=== PATIENT | female | born 1990 | race Two or more races ===

== ENCOUNTER 2025-02-12 12:49 | Inpatient (IN) | payer BC, OTHER ==
[~2025-02-12] VITALS: Ht 170.2 cm; Wt 95.2 kg
--- NOTE | 2025-02-12 13:22 | ED.PDOC ---
AUTO BODY STRAIGHTENER HPI Comments 34 y.o female with PMHx of anemia, blood transfusions and asthma, presents to the ED for a chief complaint of vaginal bleeding associated with cramping, generalized weakness and a syncopal episode. Patient reports experiencing heavy bleeding with large blood clots for the past 4 weeks, is going through one pad every 1.5 hours and states today after showering, had a syncopal episode. Patient slid down against the wall and briefly lost consciousness for 10 seconds. She denied any head trauma or injuries. Patient mentions history of heavy menstrual cycles lasting weeks with the long est being 12 weeks in which she needed a blood transfusion for. Patient states this cycle period has been the heaviest out of all her others. Patient was diagnosed with fibroids 3 weeks ago via ultrasound and states she has been on multiple control medications with no relief. Patient reports HGB level was at 6.1 2 months ago. Chief Complaint: Vaginal Bleed Time Seen by MD: 13:02 Reviewed Notes: Nurses Notes, Medications, Allergies Allergies: Coded Allergies: Ceftriaxone (Verified Allergy, Unknown, 02/12/25) Iodine (Verified Allergy, Unknown, 02/12/25) Information Source: Patient Mode of Arrival: Ambulatory Timing: Weeks (4) Severity: Severe Vaginal Discharge: None Vaginal Lesions: None Bleeding Quality: Dark, Clotted Vaginal Mass: None Onset Of Mass/Bleeding: Spontaneous Sexual Activity: Neither Last Consensual [place]: Unknown Control: None Symptoms of Possible : None Associated Signs and Symptoms: Vaginal Bleeding Past Medical History PAST MEDICAL HISTORY: Anemia, Asthma Past Medical History (Other): Blood transfusions Surgical History (Other): d&c procedure Family History Family History: Reviewed,noncontributory to illness Social History Smoker: Non-Smoker Alcohol: Denies ETOH Use Drugs: Denies Drug Use Lives In: Home Constitutional: reports: weakness; denies: chills, diaphoresis, fatigue, fever, malaise, sweats, others EENTM: denies: blurred vision, double vision, ear bleeding, ear discharge, ear drainage, ear pain, ear ringing, eye pain, eye redness, hearing loss, mouth pain, mouth swelling, nasal discharge, nose bleeding, nose congestion, nose pain, photophobia, tearing, throat pain, throat swelling, voice changes, others Respiratory: denies: cough, hemoptysis, orthopnea, SOB at rest, shortness of breath, SOB with excertion, stridor, wheezing, others Cardiovascular: reports: syncope; denies: chest pain, dizzy spells, diaphoresis, Dyspnea on exertion, edema, irregular heart beat, left arm pain, lightheadedness, palpitations, PND, others Gastrointestinal: denies: abdomen distended, abdominal pain, blood streaked bowels, constipated, diarrhea, dysphagia, difficulty swallowing, hematemesis, melena, nausea, poor appetite, poor fluid intake, rectal bleeding, rectal pain, vomiting, others Genitourinary: reports: abnormal vagina bleeding, pain; denies: burning, dyspareunia, dysuria, flank pain, frequency, hematuria, incontinence, , vagina discharge, urgency, others Neurological: denies: dizziness, fainting, headache, left sided numbness, left sided weakness, numbness, paresthesia, pre-existing deficit, right sided nu mbness, right sided weakness, seizure, speech problems, tingling, tremors, weakness, others Musculoskeletal: denies: back pain, gout, joint pain, joint swelling, muscle pain, muscle stiffness, neck pain, others Integumetry: denies: bruises, change in color, change in hair/nails, dryness, laceration, lesions, lumps, rash, wounds, others Allergic/Immunocompromised: denies: Difficulty Healing, Frequent Infections, Hives, Itching, others Hematologic/Lymphatic: denies: anemia, blood clots, easy bleeding, easy bruising, swollen glands, others Endocrine: denies: excessive hunger, excessive sweating, excessive thirst, excessive urination, flushing, intolerance to cold, intolerance to heat, unexplained weight gain, unexplained weight loss, others Psychiatric: denies: anxiety, bipolar disorder, depression, hopeless, panic disorder, schizophrenia, sleepless, suicidal, others All Other Systems: Reviewed and Negative Physical Exam General Appearance: Mild Distress, Obese HEENT: Pale Conjuntivae (L), Pale Conjuntivae (R), Other (Pupils and face symmetric. Moist mucous membranes.) Neck: Full Range of Motion, Normal Inspection Respiratory: Lungs Clear, No Accessory Muscle Use, No Respiratory Distress, Normal Breath Sounds Cardiovascular: No Edema, No JVD, Regular Rate/Rhythm Breast Exam: Deferred Gastrointestinal: Non Tender, Soft Genitalia: Deferred Pelvic: Deferred Rectal: Deferred Extremities: Normal inspection, Normal range of motion, Non-tender, No pedal edema Neurologic: Alert (Oriented x4), Normal Affect, Normal Mood, Other (Ambulatory.) Cerebellar Function: NOT DONE Reflexes: NOT DONE Skin: Dry, Pallor, Warm Lymphatic: NOT DONE Was a procedure done? Was a procedure done?: No Differential Diagnosis (STRIP TANK TENDER) Vaginal Bleeding: Blood Loss Anemia, Ectopic , Menorrhagia, Menometrorrhagia, Menstrual Bleeding, Myomatous Uterus, UTI X-Ray, Labs, Meds, VS Vital Signs Date Time Temp Pulse Resp B/P (MAP) Pulse Ox O2 Delivery O2 Flow Rate FiO2 02/12/25 15:12 86 16 100 Room Air* 0 21 02/12/25 14:06 98.1 86 16 120/52 (74) 100 98.1 02/12/25 12:53 99.4 110 20 156/98 (117) 99 99.4 Lab Test 02/12/25 13:18 Range/Units White Blood Count 4.5 4.4-10.8 10^3/uL Red Blood Count 3.34 L 4.0-5.20 10^6/uL Hemoglobin 5.0 *L 12.2-16.2 g/dL Hematocrit 17.6 L 36.0-46.0 % Mean Corpuscular Volume 52.7 L 80.0-100.0 fL Mean Corpuscular Hemoglobin 15.0 L 28.0-32.0 pg Mean Corpuscular Hemoglobin Concent 28.5 L 32.0-36.0 g/dL Red Cell Distribution Width 21.5 H 11.8-14.3 % Platelet Count 291 140-450 10^3/uL Mean Platelet Volume 8.7 6.9-10.8 fL Neutrophils (%) (Auto) 60.7 37.0-80.0 % Lymphocytes (%) (Auto) 29.3 10.0-50.0 % Monocytes (%) (Auto) 6.1 0.0-12.0 % Eosinophils (%) (Auto) 2.6 0.0-7.0 % Basophils (%) (Auto) 1.3 0.0-2.0 % Neutrophils # (Auto) 2.7 1.6-8.6 10 ^3/uL Lymphocytes # (Auto) 1.3 0.4-5.4 10 ^3/uL Monocytes # (Auto) 0.3 0-1.3 10 ^3/uL Eosinophils # (Auto) 0.1 0-0.8 10 ^3/uL Basophils # (Auto) 0.1 0-0.2 10 ^3/uL Nucleated Red Blood Cells 0.1 % Platelet Estimate Adequate Hypochromasia (manual) Moderate Anisocytosis (manual) Moderate Microcytosis Marked Ovalocytes Few Prothrombin Time 10.5 9.3-11.8 sec Prothrombin Time INR 0.99 0.9-1.15 Activated Partial Thromboplast Time 21.6 L 24.5-34.5 SEC Sodium Level 139 136-145 mmol/L Potassium Level 3.6 3.5-5.1 mmol/L Chloride Level 109 H 98-107 mmol/L Carbon Dioxide Level 21 20-31 mmol/L Anion Gap 9 5-15 Blood Urea Nitrogen 9 9-23 mg/dL Creatinine 0.72 0.550-1.02 mg/dL Glomerular Filtration Rate Calc 111 >90 mL/min BUN/Creatinine Ratio 12.5 10.0-20.0 Serum Glucose 93 74-106 mg/dL Calcium Level 9.3 8.7-10.4 mg/dL Beta HCG, Quantitative 1.3 L 1.5-4.2 mIU/mL Procedure: US PELVIC Study Date and Requested Time: 02/12/2025 02:11 PM Study Description: US PELVIC History: vaginal bleeding Comparison: 12/20/2024 Technique: Multiple transabdominal and transvaginal high resolution baig-scale images obtained of the uterus and adnexa with color Doppler for evaluation of adnexal blood flow and vascularity as indicated. Findings: Uterus measures 13.2 x 7.9 x 6.9 cm, with heterogeneous echotexture. Endometrium within normal limits, measuring 2.2 cm in thickness with smooth contour. Cervix within normal limits. Right ovary is not visualized. The left ovary measures 4 x 2.8 x 3.8 cm with a 2.2 cm cyst. Normal left ovarian color doppler flow. No evidence of free fluid in the cul-de-sac. Impression: Limited evaluation due to body habitus and overlying bowel gas. Thickened endometrium at 2.2 cm. Correlate for endometrial hyperplasia. 2.2 cm left ovarian cyst. The previously noted uterine fibroid over the fundus is not well delineated on current study. X-Ray, Labs, Meds, VS Comment 34-year-old female with a history of heavy menses, anemia and asthma complaining of a syncopal episode and heavy vaginal bleeding Vitals remarkable for heart rate 110, BP 156/98 Exam remarkable for pallor and tachycardia Rhythm strip independently interpreted by me: Sinus tach, rate 110, no ectopy. Pelvic ultrasound: Impression: Limited evaluation due to body habitus and overlying bowel gas. Thickened endometrium at 2.2 cm. Correlate for endometrial hyperplasia. 2.2 cm left ovarian cyst. The previously noted uterine fibroid over the fundus is not well delineated on c urrent study. CBC remarkable for hemoglobin 5, hematocrit 17.6, metabolic panel unremarkable, coagulation panel remarkable for PTT 21.6, hCG negative Patient was typed and crossed for 2 units of packed red cells. Plan is to admit the patient for transfusion and safety fire boss evaluation. Time of 1ST Reevaluation: 13:21 Reevaluation 1ST: Unchanged Patient Education/Counseling: Diagnosis, Treatment, Prognosis Family Education/Counseling: No Family Present Departure 1 Departure Time of Disposition: 16:00 Impression: Primary Impression: Symptomatic anemia Additional Impressions: Uterine fibroid Vaginal bleeding Disposition: ADMITTED INPATIENT Admit to: Tele Condition: Guarded Critical Care Note Critical Care Time?: No Stability Stability form required: No I personally scribed for KAY PUENTES MD (SILVIA) on 02/12/25 at 13:22. Electronically submitted by Kennedi Olivo ([facility]). I personally scribed for KAY PUENTES MD (SILVIA) on 02/12/25 at 13:37. Electronically submitted by Kennedi Olivo ([facility]). I personally scribed for KAY PUENTES MD (SILVIA) on 02/12/25 at 15:02. Electronically submitted by Kennedi Olivo ([facility]). KAY PUENTES MD Feb 12, 2025 13:22
[2025-02-12 13:38] LABS: Basophils # (auto) 0.1 10 ^3/uL (0-0.2); Eosinophils # (auto) 0.1 10 ^3/uL (0-0.8); Lymphocytes # (auto) 1.3 10 ^3/uL (0.4-5.4); Neutrophils # (auto) 2.7 10 ^3/uL (1.6-8.6); Nucleated Red Blood Cells % 0.1 %; White Blood Cell 4.5 10^3/uL (4.4-10.8)
[2025-02-12 13:42] LABS: Basophils % (auto) 1.3 % (0.0-2.0); Eosinophils % (auto) 2.6 % (0.0-7.0); Hematocrit 17.6 % (36.0-46.0); Lymphocytes % (auto) 29.3 % (10.0-50.0); Mean Corpuscular Hgb Conc. 28.5 g/dL (32.0-36.0); Mean Corpuscular Volume 52.7 fL (80.0-100.0); Monocytes # (auto) 0.3 10 ^3/uL (0-1.3); Monocytes % (auto) 6.1 % (0.0-12.0); Neutrophils % (auto) 60.7 % (37.0-80.0); Platelet Count (auto) 291 10^3/uL (140-450); Red Blood Cells 3.34 10^6/uL (4.0-5.20)
[2025-02-12 13:43] LABS: Potassium 3.6 mmol/L (3.5-5.1); Sodium 139 mmol/L (136-145)
[2025-02-12 13:44] LABS: Anion Gap 9 (5-15); Carbon Dioxide 21 mmol/L (20-31)
[2025-02-12 13:45] LABS: Calcium 9.3 mg/dL (8.7-10.4); Red Cell Distribution Width 21.5 % (11.8-14.3)
[2025-02-12 13:48] LABS: Chloride 109 mmol/L (98-107)
[2025-02-12 13:49] LABS: Glucose 93 mg/dL (74-106)
[2025-02-12 13:50] LABS: BUN/Creatinine Ratio 12.5 (10.0-20.0); Blood Urea Nitrogen 9 mg/dL (9-23)
[2025-02-12 13:52] LABS: INR 0.99 (0.9-1.15); Partial Thromboplastin Time 21.6 SEC (24.5-34.5); Prothrombin Time 10.5 sec (9.3-11.8)
[2025-02-12 14:26] LABS: Anisocytosis Moderate; Hypochromia Moderate; Platelet Estimate Adequate
[2025-02-12 14:28] LABS: Ovalocytes FEW
--- NOTE | 2025-02-12 14:56 | DVH ---
Procedure: US PELVIC Study Date and Requested Time: 02/12/2025 02:11 PM Study Description: US PELVIC History: vaginal bleeding Comparison: 12/20/2024 Technique: Multiple transabdominal and transvaginal high resolution baig-scale images obtained of the uterus and adnexa with color Doppler for evaluation of adnexal blood flow and vascularity as indicat ed. Findings: Uterus measures 13.2 x 7.9 x 6.9 cm, with heterogeneous echotexture. Endometrium within normal limits , measuring 2.2 cm in thickness with smooth contour. Cervix within normal limits. Right ovary is not visualized. The left ovary measures 4 x 2.8 x 3.8 cm with a 2.2 cm cyst. Normal l eft ovarian color doppler flow. No evidence of free fluid in the cul-de-sac. Impression: Limited evaluation due to body habitus and overlying bowel gas. Thickened endometrium at 2.2 cm. Correlate for endometrial hyperplasia. 2.2 cm left ovarian cyst. The previously noted uterine fibroid over the fundus is not well delineated on current study.
[2025-02-12 15:12] VITALS: PULSE 86; RESP 16; O2SAT 100
[2025-02-12 17:45] LABS: Urine Bacteria None Seen /hpf (None Seen)
[2025-02-12] MEDS ORDERED: MORPHINE SULFATE INJ 2 MG/ml SYRG IV PRN ×2 (18:00)
[2025-02-12] MEDS ORDERED: NITROGLYCERIN 0.4 MG SL TAB SL PRN (18:00)
[2025-02-12] MEDS ORDERED: HYDROcodone-ACET 5/325MG TAB PO PRN (18:00)
[2025-02-12] MEDS ORDERED: ONDANSETRON HCL 4 MG/2 ML VIAL IV PRN (18:00)
[2025-02-12 18:25] LABS: Urine Blood 3+ /uL (Negative); Urine Clarity Turbid (Clear); Urine Color Yellow (Yellow); Urine Mucus FEW (None Seen); Urine Protein, UAD TRACE (Negative); Urine Specific Gravity 1.027 (1.001-1.035); Urine Squamous Epithelial Cell FEW /hpf (<5); Urine Urobilinogen Normal (Negative); Urine WBC 3 /HPF (0-5); Urine pH 5.5 (5.0-9.0)
[2025-02-12 21:36] VITALS: BP 109/56; PULSE 82; RESP 18; TEMP 98.9; O2SAT 99
[2025-02-13] VITALS (23 sets, daily range): BP systolic 95–116; BP diastolic 44–65; PULSE 63–89; RESP 16–20; TEMP 97.7–99.1; O2SAT 19–98
--- NOTE | 2025-02-13 00:42 | DVHHP2 ---
Admitting Diagnosis: Symptomatic Anemia, Menorrhagia History of Present Illness History Source: Patient Exam Limitations: No limitations HPI Mrs. Arlin Santos is a 34 y.o female with a history of anemia, blood transfusions and asthma, presents to the ED for a chief complaint of vaginal bleeding associated with cramping, generalized weakness and a syncopal episode. Patient reports experiencing heavy bleeding with large blood clots for the past 4 weeks, is going through one pad every 1.5 hours and states today after showering, had a syncopal episode. Patient slid down against the wall and briefly lost consciousness for 10 seconds. She denied any head trauma or i njuries. Patient mentions history of heavy menstrual cycles lasting weeks with the longest being 12 weeks in which she needed a blood transfusion for. Patient states this cycle period has been the heaviest out of all her others. Patient was diagnosed with fibroids 3 weeks ago via ultrasound and states she has been on multiple control medications with no relief, patient reports she is with BLOOD BANK TECHNICIAN Dr. Rosario Tolentino and has an outpatient appointment for biopsy. Patient reports HGB level was at 6.1 2 months ago. Patient admitted for further treatment. Home Meds Reported Medications Albuterol Sulfate (VENTOLIN MDI) 90 Mcg Ih, 90 MCG IN, INH 02/13/25 Multiple Vitamin (Multivitamins) Tab, 1 TAB PO DAILY, #90 TAB 3 Refills 02/13/25 Ferrous Sulfate (FERROUS SULFATE) 325 Mg Tb, 1 TAB PO DAILY, #30 TAB 3 Refills 02/13/25 Past Medical History Cardiac: No pertinent Hx Pulmonary: Asthma Central Nervous System: No pertinent Hx GI: No pertinent Hx Hemotology/Oncology: No pertinent Hx Hepatobiliary: No pertinent Hx Psychiatric: No pertinent Hx Musculoskeletal: No pertinent Hx Rheumotologic: No pertinent Hx Infectious Disease: No peritnent Hx ENT: No pertinent Hx Renal/: No pertinent Hx Endocrine: No pertinent Hx Dermatology: No pertinent Hx Others blood transfusion, uterine fibroids, anemia Review of Systems Constitutional: No symptom reported Ears, Nose, & Throat: No symptom reported Eyes: No symptom reported Pulmonary/Respiratory: No symptom reported Cardiovascular: No symptom reported Gastrointestinal: No symptom reported Genitourinary: No symptom reported Musculoskeletal: No symptom reported Skin: No symptom reported Psychiatric: No symptom reported Endocrine: No symptom reported Hemotologic/Lymphatic: No symptom reported All Other Systems vaginal bleeding, dizziness H&P Exam Vital Signs Vital Signs Date Time Temp Pulse Resp B/P (MAP) Pulse Ox O2 Delivery O2 Flow Rate FiO2 02/12/25 21:36 98.9 82 18 109/56 (73) 99 98.9 02/12/25 15:12 Room Air* 0 21 General Appeara: Well developed, Well nourished, Normal Appearance, Other (pallor) Head Exam: Normal inspection Neck Exam: Normal inspection, Non-tender, Normal alignment Eye Exam: bilateral eye Normal inspection, bilateral eye PERRL, bilateral eye EOMI Ear Exam: bilateral ear Auricle normal Nasal Exam: Normal inspection Mouth: Normal Inspection Pulmonary/Respiratory: Normal inspection, Normal breath sounds, Chest non- tender, Lungs clear Cardiovascular/Chest: Normal inspection, Regular rate, Normal Rhythm Peripheral Pulses: 2+ dorsalis pedis (R), 2+ dorsalis pedis (L), 2+ Radial (R), 2+ Radial (L) Abdominal Exam: Normal bowel sounds, Soft Rectal Exam: Deferred Pelvic Exam: Other (vaginal bleeding) COMPUTER SYSTEMS CONSULTANT Exam: Normal hearing, Normal speech, PERRL Neuro/Mental St: Alert, Oriented Appearance: Appropriate appearance, Appropriate insight Eye contact/ Speech: Cooperative, Good eye contact, Normal speech Thoughts/Psych: Normal thought pattern Skin Exam: Normal inspection, Warm/dry, Pallor Labs/Xrays Labs Test 02/12/25 13:18 02/12/25 12:59 Range/Units White Blood Count 4.5 4.4-10.8 10^3/uL Red Blood Count 3.34 L 4.0-5.20 10^6/uL Hemoglobin 5.0 *L 12.2-16.2 g/dL Hematocrit 17.6 L 36.0-46.0 % Mean Corpuscular Volume 52.7 L 80.0-100.0 fL Mean Corpuscular Hemoglobin 15.0 L 28.0-32.0 pg Mean Corpuscular Hemoglobin Concent 28.5 L 32.0-36.0 g/dL Red Cell Distribution Width 21.5 H 11.8-14.3 % Platelet Count 291 140-450 10^3/uL Mean Platelet Volume 8.7 6.9-10.8 fL Neutrophils (%) (Auto) 60.7 37.0-80.0 % Lymphocytes (%) (Auto) 29.3 10.0-50.0 % Monocytes (%) (Auto) 6.1 0.0-12.0 % Eosinophils (%) (Auto) 2.6 0.0-7.0 % Basophils (%) (Auto) 1.3 0.0-2.0 % Neutrophils # (Auto) 2.7 1.6-8.6 10 ^3/uL Lymphocytes # (Auto) 1.3 0.4-5.4 10 ^3/uL Monocytes # (Auto) 0.3 0-1.3 10 ^3/uL Eosinophils # (Auto) 0.1 0-0.8 10 ^3/uL Basophils # (Auto) 0.1 0-0.2 10 ^3/uL Nucleated Red Blood Cells 0.1 % Platelet Estimate Adequate Hypochromasia (manual) Moderate Anisocytosis (manual) Moderate Microcytosis Marked Ovalocytes Few Prothrombin Time 10.5 9.3-11.8 sec Prothrombin Time INR 0.99 0.9-1.15 Activated Partial Thromboplast Time 21.6 L 24.5-34.5 SEC Sodium Level 139 136-145 mmol/L Potassium Level 3.6 3.5-5.1 mmol/L Chloride Level 109 H 98-107 mmol/L Carbon Dioxide Level 21 20-31 mmol/L Anion Gap 9 5-15 Blood Urea Nitrogen 9 9-23 mg/dL Creatinine 0.72 0.550-1.02 mg/dL Glomerular Filtration Rate Calc 111 >90 mL/min BUN/Creatinine Ratio 12.5 10.0-20.0 Serum Glucose 93 74-106 mg/dL Calcium Level 9.3 8.7-10.4 mg/dL Beta HCG, Quantitative 1.3 L 1.5-4.2 mIU/mL Urine Color Yellow Yellow Urine Clarity Turbid H Clear Urine pH 5.5 5.0-9.0 Urine Specific [place] 1.027 1.001-1.035 Urine Protein Trace H Negative Urine Ketones Negative Negative Urine Blood 3+ H Negative /uL Urine Nitrite Negative Negative Urine Bilirubin Negative Negative Urine Urobilinogen Normal Negative mg/dL Urine Leukocyte Esterase Negative Negative /uL Urine RBC 1636 0 - 4 /hpf Urine Microscopic WBC 3 0-5 /HPF Urine Squamous Epithelial Cells Few <5 /hpf Urine Bacteria None seen None Seen /hpf Urine Mucus Few None Seen Urine Glucose Normal Normal mg/dL Assessment/Plan Problem List: (1) Symptomatic anemia (2) Menorrhagia (3) Uterine fibroid Plan This is a 34 yo female with known history of uterine fibroid, blood transfusions, anemia, asthma who presents to the hospital with vaginal bleeding. Patient was found to have 1. Symptomatic Anemia 2. Menorrhagia 3. Uterine Fibroid Plan Admit Telemetry unit Transfuse 2 units PRBC's pending patient has antibodies Monitor CBC 2gm Na diet Discussed all above with patient who verbalizes agreement and understanding of care plan. All questions were answered. Discussed assessment and care plan with admitting/supervising MD. Plan discussed with: Patient, Other Code Visit Code Visit Total Time (mins): 45 Additional Comments Additional Comments Additional Comments 4-year-old female with a known history of uterine fibroid, previous history of b lood transfusion, chronic anemia, chronic asthma initially presented to hospital with vaginal bleeding for last four weeks. Found to have 1. Acute symptomatic anemia 2. Menorrhagia 3. Uterine fibroid 4. Chronic anemia- -transfuse 2 units of packed RBC, recheck hemoglobin if less than seven then transfuse another 1 unit. OLLIE MARTINEZ PAPER GOODS MACHINE SET UP OPERATOR Feb 13, 2025 00:42 ESHA FOSTER MD Feb 13, 2025 15:03
[2025-02-13] MEDS ORDERED: FER325T PO (02:22)
[2025-02-13] MEDS ORDERED: MULT-1018 PO (02:22)
[2025-02-13] MEDS ORDERED: ALBUAER3 IN (02:22)
[2025-02-13 07:08] LABS: Basophils # (auto) 0 10 ^3/uL (0-0.2); Eosinophils # (auto) 0.1 10 ^3/uL (0-0.8); Mean Corpuscular Volume 52.2 fL (80.0-100.0); Monocytes # (auto) 0.2 10 ^3/uL (0-1.3); Neutrophils # (auto) 1.8 10 ^3/uL (1.6-8.6)
[2025-02-13 07:10] LABS: Basophils % (auto) 1.1 % (0.0-2.0); Eosinophils % (auto) 3.4 % (0.0-7.0); Hematocrit 14.7 % (36.0-46.0); Lymphocytes # (auto) 1.4 10 ^3/uL (0.4-5.4); Lymphocytes % (auto) 38.7 % (10.0-50.0); Mean Corpuscular Hemoglobin 14.9 pg (28.0-32.0); Mean Corpuscular Hgb Conc. 28.6 g/dL (32.0-36.0); Monocytes % (auto) 6.9 % (0.0-12.0); Neutrophils % (auto) 49.9 % (37.0-80.0); Nucleated Red Blood Cells % 0.2 %; Platelet Count (auto) 254 10^3/uL (140-450); Red Blood Cells 2.82 10^6/uL (4.0-5.20); Red Cell Distribution Width 21.2 % (11.8-14.3); White Blood Cell 3.6 10^3/uL (4.4-10.8)
[2025-02-13 07:25] LABS: Hemoglobin 4.2 g/dL (12.2-16.2)
[2025-02-13 08:41] LABS: Anisocytosis Moderate; Hypochromia Marked
[2025-02-13 08:42] LABS: Ovalocytes FEW; Platelet Estimate Adequate; Tear Drop Cells FEW
[2025-02-13] MEDS ORDERED: FAMOTIDINE (10MG/ML) 2ML VL IV PRN (10:30)
[2025-02-13] MEDS ORDERED: diphenhdrAMINE HCL 50 MG/1 ML VL IV PRN (10:30)
[2025-02-13] MEDS ORDERED: methylPREDNISolone SOD SUCC 125 MG/2 ML VL IV SCH (10:45)
[2025-02-13] MEDS ORDERED: methylPREDNISolone SOD SUCC 125 MG/2 ML VL IV PRN (11:00)
[2025-02-13] MEDS: ACETAMINOPHEN 325 MG TAB PO PRN (12:52)
[2025-02-13] MEDS: medroxyPROGESTERone ACETATE 5 MG TAB PO SCH (17:09)
[2025-02-13] MEDS: TRANEXAMIC ACID 1,000 MG in SODIUM CHL 0.9% 100 ML IV SCH (17:11)
[2025-02-13 22:01] LABS: Eosinophils # (auto) 0.1 10 ^3/uL (0-0.8); Mean Corpuscular Hemoglobin 18.6 pg (28.0-32.0); Monocytes # (auto) 0.4 10 ^3/uL (0-1.3); Neutrophils # (auto) 2.3 10 ^3/uL (1.6-8.6); Nucleated Red Blood Cells % 0.2 %; White Blood Cell 4.8 10^3/uL (4.4-10.8)
[2025-02-13 22:06] LABS: Basophils # (auto) 0.1 10 ^3/uL (0-0.2); Basophils % (auto) 1.4 % (0.0-2.0); Eosinophils % (auto) 2.8 % (0.0-7.0); Lymphocytes % (auto) 40.9 % (10.0-50.0); Mean Corpuscular Hgb Conc. 30.5 g/dL (32.0-36.0); Mean Corpuscular Volume 61.1 fL (80.0-100.0); Monocytes % (auto) 7.4 % (0.0-12.0); Neutrophils % (auto) 47.5 % (37.0-80.0); Platelet Count (auto) 246 10^3/uL (140-450)
[2025-02-13 22:22] LABS: Hemoglobin 6.7 g/dL (12.2-16.2); Red Cell Distribution Width 34.8 % (11.8-14.3)
[2025-02-13 22:24] LABS: Anisocytosis Marked; Hypochromia Marked; Large Platelets FEW; Platelet Estimate Adequate
[2025-02-13 22:25] LABS: Tear Drop Cells FEW
[2025-02-13 22:27] LABS: Ovalocytes MODERATE
[2025-02-14] VITALS (9 sets, daily range): BP systolic 94–108; BP diastolic 50–72; PULSE 61–77; RESP 18–20; TEMP 97.6–98.6; O2SAT 97–100
[2025-02-14] MEDS: TRANEXAMIC ACID 1,000 MG in SODIUM CHL 0.9% 100 ML IV SCH (04:45)
[2025-02-14 06:34] LABS: Eosinophils # (auto) 0.2 10 ^3/uL (0-0.8); Hemoglobin 7.1 g/dL (12.2-16.2); Lymphocytes # (auto) 1.6 10 ^3/uL (0.4-5.4); Monocytes # (auto) 0.3 10 ^3/uL (0-1.3); Neutrophils # (auto) 2.1 10 ^3/uL (1.6-8.6); Nucleated Red Blood Cells % 0.1 %; Platelet Count (auto) 223 10^3/uL (140-450)
[2025-02-14 06:36] LABS: Basophils # (auto) 0 10 ^3/uL (0-0.2); Eosinophils % (auto) 3.7 % (0.0-7.0); Hematocrit 23.3 % (36.0-46.0); Lymphocytes % (auto) 38.3 % (10.0-50.0); Mean Corpuscular Hemoglobin 19.8 pg (28.0-32.0); Mean Corpuscular Hgb Conc. 30.7 g/dL (32.0-36.0); Mean Corpuscular Volume 64.5 fL (80.0-100.0); Monocytes % (auto) 6.4 % (0.0-12.0); Neutrophils % (auto) 50.6 % (37.0-80.0); Red Blood Cells 3.61 10^6/uL (4.0-5.20); White Blood Cell 4.1 10^3/uL (4.4-10.8)
[2025-02-14 07:00] LABS: Red Cell Distribution Width 36.2 % (11.8-14.3)
--- NOTE | 2025-02-14 13:48 | DVHDS2 ---
Discharge Summary Date of Admission Feb 12, 2025 at 17:52 Date of Discharge: Feb 14, 2025 Labs/Diagnostic Data: Laboratory Results Test 02/14/25 05:40 02/13/25 21:40 02/12/25 13:18 02/12/25 12:59 White Blood Count 4.1 10^3/uL (4.4-10.8) Red Blood Count 3.61 10^6/uL (4.0-5.20) Hemoglobin 7.1 g/dL (12.2-16.2) Hematocrit 23.3 % (36.0-46.0) Mean Corpuscular Volume 64.5 fL (80.0-100.0) Mean Corpuscular Hemoglobin 19.8 pg (28.0-32.0) Mean Corpuscular Hemoglobin Concent 30.7 g/dL (32.0-36.0) Red Cell Distribution Width 36.2 % (11.8-14.3) Platelet Count 223 10^3/uL (140-450) Mean Platelet Volume 8.5 fL (6.9-10.8) Neutrophils (%) (Auto) 50.6 % (37.0-80.0) Lymphocytes (%) (Auto) 38.3 % (10.0-50.0) Monocytes (%) (Auto) 6.4 % (0.0-12.0) Eosinophils (%) (Auto) 3.7 % (0.0-7.0) Basophils (%) (Auto) 1.0 % (0.0-2.0) Neutrophils # (Auto) 2.1 10 ^3/uL (1.6-8.6) Lymphocytes # (Auto) 1.6 10 ^3/uL (0.4-5.4) Monocytes # (Auto) 0.3 10 ^3/uL (0-1.3) Eosinophils # (Auto) 0.2 10 ^3/uL (0-0.8) Basophils # (Auto) 0 10 ^3/uL (0-0.2) Nucleated Red Blood Cells 0.1 % Platelet Estimate Adequate Large Platelets Few Hypochromasia (manual) Marked Anisocytosis (manual) Marked Microcytosis Marked Tear Drop Cells Few Ovalocytes Moderate Prothrombin Time 10.5 sec (9.3-11.8) Prothrombin Time INR 0.99 (0.9-1.15) Activated Partial Thromboplast Time 21.6 SEC (24.5-34.5) Sodium Level 139 mmol/L (136-145) Potassium Level 3.6 mmol/L (3.5-5.1) Chloride Level 109 mmol/L (98-107) Carbon Dioxide Level 21 mmol/L (20-31) Anion Gap 9 (5-15) Blood Urea Nitrogen 9 mg/dL (9-23) Creatinine 0.72 mg/dL (0.550-1.02) Glomerular Filtration Rate Calc 111 mL/min (>90) BUN/Creatinine Ratio 12.5 (10.0-20.0) Serum Glucose 93 mg/dL (74-106) Calcium Level 9.3 mg/dL (8.7-10.4) Beta HCG, Quantitative 1.3 mIU/mL (1.5-4.2) Urine Color Yellow (Yellow) Urine Clarity Turbid (Clear) Urine pH 5.5 (5.0-9.0) Urine Specific [place] 1.027 (1.001-1.035) Urine Protein Trace (Negative) Urine Ketones Negative (Negative) Urine Blood 3+ /uL (Negative) Urine Nitrite Negative (Negative) Urine Bilirubin Negative (Negative) Urine Urobilinogen Normal mg/dL (Negative) Urine Leukocyte Esterase Negative /uL (Negative) Urine RBC 1636 /hpf (0 - 4) Urine Microscopic WBC 3 /HPF (0-5) Urine Squamous Epithelial Cells Few /hpf (<5) Urine Bacteria None seen /hpf (None Seen) Urine Mucus Few (None Seen) Urine Glucose Normal mg/dL (Normal) Other Laboratory Tests 02/14/25 05:40 02/12/25 13:18 Brief Hx & Hospital Course: 34-year-old female with a known history of uterine fibroid, previous history of blood transfusion, chronic anemia, chronic asthma initially presented to hospital with vaginal bleeding for last four weeks. Patient was found to have acute symptomatic anemia secondary to excessive vaginal bleeding because of menorrhagia. Patient does have noticed a uterine fibroid and chronic anemia. Patient received 2 units of packed RBC coli stable to be discharge. Patient needs to follow up with the Gynecology Dr. Patria adams as scheduled. Condition at Discharge: Stable Final Diagnosis/Problems List 34-year-old female with a known history of uterine fibroid, previous history of blood transfusion, chronic anemia, chronic asthma initially presented to hospital with vaginal bleeding for last four weeks. Found to have 1. Acute symptomatic anemia 2. Menorrhagia 3. Uterine fibroid 4. Chronic anemia- Discharge Disposition: Home SNF Discharge Will this Physician continue t: No Discharge Instruct/Medications Diet: Regular Activity: No Restrictions, As Tolerated Follow Up/Referral: Follow up with Gynecology in 1 week Follow up with PCP with a repeat CBC in less than 1 week. Medications: Resume home medications Discharge Statement: "Patient was advised to return to the ER or call 911 if any headaches, dizziness, shortness of breath, chest pain, abdominal pain, bleeding, fevers, or worsening of medical condition. Patient was counseled about treatment plan, medications, possible side effects, patientverbalized understanding. All questions were answered to the best of my ability. This discharge took greater then 30 minutes in planning, reviewing documentation, counseling the patient, and discussing with other team members." ASSESSMENT ASSESSMENT Assessment 4-year-old female with a known history of uterine fibroid, previous history of blood transfusion, chronic anemia, chronic asthma initially presented to hospital with vaginal bleeding for last four weeks. Found to have 1. Acute symptomatic anemia 2. Menorrhagia 3. Uterine fibroid 4. Chronic anemia- Date of Service: Feb 14, 2025 Billing Provider: ESHA FOSTER MD Common Visit Codes: NOT BILLABLE ESHA FOSTER MD Feb 14, 2025 13:48
--- NOTE | 2025-02-14 15:25 | DVHINCON2 ---
Date of service: Feb 13, [address] betancourt Reason for Consultation menorrhagia with anemia History of Present Illness pt is admitted for syncope,severe anemia and menorrhagia.pt sees hanna dick and has had hx of blood transfusion ,hx of chronic anemia and fibroid .last pap was recnet and nl. Past Medical History anemia,fibroid Past Surgical History d and c,appendectomy Family History na Social History Patient Family History: Chronic obstructive pulmonary disease G8 FATHER Allergies: Coded Allergies: Ceftriaxone (Verified Allergy, Unknown, 02/12/25) Iodine (Verified Allergy, Unknown, 02/12/25) Home Meds Reported Medications Albuterol Sulfate (VENTOLIN MDI) 90 Mcg Ih, 90 MCG IN, INH 02/13/25 Multiple Vitamin (Multivitamins) Tab, 1 TAB PO DAILY, #90 TAB 3 Refills 02/13/25 Ferrous Sulfate (FERROUS SULFATE) 325 Mg Tb, 1 TAB PO DAILY, #30 TAB 3 Refills 02/13/25 Current Medications Current Medications Medications (Trade) Dose Ordered Sig/Devendra Route PRN Reason Start Time Stop Time Status Last Admin Medroxyprogesterone Acetate (Provera Tablet) 10 mg DAILY PO 02/14/25 14:00 02/13/25 17:09 Tranexamic Acid 1000 mg/Sodium Chloride 110 ml @ 300 mls/hr Q12H IV 02/14/25 05:00 02/14/25 17:21 02/14/25 04:45 Review of Systems Constitutional: no fever, chill, weight loss HEENT: no eye pain, no hearing loss, no oral lesion, no scleral icterus Heart: no chest pain, no chest pressure Lung: no cough, no dyspnea with exertion Abdomen: see HPI : no pain with urination, normal appearing urine Musculoskeletal: no joint pain, no muscle pain Neurological: no seizure, no loss of sensation, pos weakness in extremities Pysch: no depression, no anxiety Derm: no rash, no jaundice Vital Signs Vital Signs Date Time Temp Pulse Resp B/P (MAP) Pulse Ox O2 Delivery O2 Flow Rate FiO2 02/14/25 13:00 98.5 74 20 107/60 (76) 100 98.5 02/14/25 08:00 Room Air* 0 21 Physical Exam SKIN: [pale] HEENT: [pale conjuctivae] NECK: [nl] CARDIAC: [rrr] PULMONARY: [cta] ABDOMEN: [soft,obese] MUSCULOSKELETAL: [nl] NEURO: [nl pelvic-mod bleeding noted at the time of exam,cx nl,uterus 14 wks size,adenxa nt] Labs/Diagnostic Data Labs Test 02/14/25 05:40 02/13/25 21:40 02/12/25 13:18 02/12/25 12:59 Range/Units White Blood Count 4.1 L 4.4-10.8 10^3/uL Red Blood Count 3.61 L 4.0-5.20 10^6/uL Hemoglobin 7.1 L 12.2-16.2 g/dL Hematocrit 23.3 L 36.0-46.0 % Mean Corpuscular Volume 64.5 #L 80.0-100.0 fL Mean Corpuscular Hemoglobin 19.8 L 28.0-32.0 pg Mean Corpuscular Hemoglobin Concent 30.7 L 32.0-36.0 g/dL Red Cell Distribution Width 36.2 H 11.8-14.3 % Platelet Count 223 140-450 10^3/uL Mean Platelet Volume 8.5 6.9-10.8 fL Neutrophils (%) (Auto) 50.6 37.0-80.0 % Lymphocytes (%) (Auto) 38.3 10.0-50.0 % Monocytes (%) (Auto) 6.4 0.0-12.0 % Eosinophils (%) (Auto) 3.7 0.0-7.0 % Basophils (%) (Auto) 1.0 0.0-2.0 % Neutrophils # (Auto) 2.1 1.6-8.6 10 ^3/uL Lymphocytes # (Auto) 1.6 0.4-5.4 10 ^3/uL Monocytes # (Auto) 0.3 0-1.3 10 ^3/uL Eosinophils # (Auto) 0.2 0-0.8 10 ^3/uL Basophils # (Auto) 0 0-0.2 10 ^3/uL Nucleated Red Blood Cells 0.1 % Platelet Estimate Adequate Large Platelets Few Hypochromasia (manual) Marked Anisocytosis (manual) Marked Microcytosis Marked Tear Drop Cells Few Ovalocytes Moderate Prothrombin Time 10.5 9.3-11.8 sec Prothrombin Time INR 0.99 0.9-1.15 Activated Partial Thromboplast Time 21.6 L 24.5-34.5 SEC Sodium Level 139 136-145 mmol/L Potassium Level 3.6 3.5-5.1 mmol/L Chloride Level 109 H 98-107 mmol/L Carbon Dioxide Level 21 20-31 mmol/L Anion Gap 9 5-15 Blood Urea Nitrogen 9 9-23 mg/dL Creatinine 0.72 0.550-1.02 mg/dL Glomerular Filtration Rate Calc 111 >90 mL/min BUN/Creatinine Ratio 12.5 10.0-20.0 Serum Glucose 93 74-106 mg/dL Calcium Level 9.3 8.7-10.4 mg/dL Beta HCG, Quantitative 1.3 L 1.5-4.2 mIU/mL Urine Color Yellow Yellow Urine Clarity Turbid H Clear Urine pH 5.5 5.0-9.0 Urine Specific [place] 1.027 1.001-1.035 Urine Protein Trace H Negative Urine Ketones Negative Negative Urine Blood 3+ H Negative /uL Urine Nitrite Negative Negative Urine Bilirubin Negative Negative Urine Urobilinogen Normal Negative mg/dL Urine Leukocyte Esterase Negative Negative /uL Urine RBC 1636 0 - 4 /hpf Urine Microscopic WBC 3 0-5 /HPF Urine Squamous Epithelial Cells Few <5 /hpf Urine Bacteria None seen None Seen /hpf Urine Mucus Few None Seen Urine Glucose Normal Normal mg/dL Primary Diagnosis severe anemia 2' Diagnosis/Comorbidities menorrhagia with anemia symptomatic fibroid uterus Plan pt was started on txa,blood transfusion and provera pt is to fu charlene with dick to sched hysterectomy will sign off thank you Plan discussed with: Patient Visit Coding OBGYN Date of Service: Feb 13, 2025 Billing Provider: PEGGY WATSON DO [employer]Y SUPERVISOR Common Visit Codes: 52042-IOT/OBS SAME DATE (HIGH) SAFETY SUPERVISOR Consultation Codes: 44953-XLMVRZOPZ CONSULT <80MIN PEGGY WATSON DO Feb 14, 2025 15:25
== END 2025-02-14 17:00 | disposition home or self-care (01) | DRG 761 ==
LOC: ER 12:52 → OVERFLOW 17:52 → TELE-EAST 17:55
PROVIDERS: ADMIT Internal Medicine; ATTEND Internal Medicine
PROC: 30233N1 Transfusion of Nonautologous Red Blood Cells into Peripheral Vein, Percutaneous Approach (ICD-10-PCS; principal; 2025-02-13)
DX: N92.0 Excessive and frequent menstruation with regular cycle (principal); J44.89 Other specified chronic obstructive pulmonary disease; D64.9 Anemia, unspecified; D25.9 Leiomyoma of uterus, unspecified; R93.89 Abnormal findings on diagnostic imaging of other specified body structures; N83.202 Unspecified ovarian cyst, left side; Z88.5 Allergy status to narcotic agent; Z88.1 Allergy status to other antibiotic agents
CPT/HCPCS: 36415; 36430; 76856; 80048; 81001; 84702; 85025; 85610; 85730; 86850; 86860; 86870; 86880; 86900; 86901; 86905; 86906; 86922; 86978; G0378; J3490